=== PATIENT | female | born 1965 | race Caucasian/White ===

== ENCOUNTER → 2017-03-19 | Outpatient (CLI) | payer BC ==
--- NOTE | 2017-03-23 09:02 | MM ---
Reason for exam: screening (asymptomatic). Last mammogram was performed 3 years and 10 months ago. History: Family history of breast cancer in grandmother at age 92. Benign US right core biopsy of the right breast, July 08, 2007. Benign US right core biopsy of the right breast, July 08, 2007. Physical Findings: A clinical breast exam by your physician is recommended on an annual basis and results should be correlated with mammographic findings. MG Screening Mammo w CAD Bilateral CC and MLO view(s) were taken. Prior study comparison: May 09, 2013, bilateral digital screening mammo w/CAD. June 03, 2007, bilateral workup diagnostic mammogram. There are scattered fibroglandular densities. Finding: There are typically benign stable masses in both breasts. No suspicious abnormality. Post biopsy change upper outer quadrant right breast. No significant changes in finding since May 09, 2013 and June 03, 2007. ASSESSMENT: Benign, BI-RAD 2 RECOMMENDATION: Routine screening mammogram of both breasts in 1 year.
== END | disposition home or self-care (01) ==
LOC: RADMAMWWP 15:33
PROVIDERS: ATTEND Family Medicine
DX: Z12.31 Encounter for screening mammogram for malignant neoplasm of breast (principal)

== ENCOUNTER → 2020-07-18 | Outpatient (CLI) | payer BC ==
--- NOTE | 2020-07-18 15:14 | US ---
EXAMINATION TYPE: US transvaginal DATE OF EXAM: 07/18/2020 COMPARISON: NONE CLINICAL HISTORY: 55-year-old female N95.0 Post menopausal bleeding. Post menopausal bleeding x 9 day s, pelvic cramping, 2, para 2, history of tubal ligation. TECHNIQUE: Transvaginal exam only per physician order. Date of LMP: 2 years ago FINDINGS: EXAM MEASUREMENTS: Uterus: 7.6 x 3.9 x 5.6 cm Endometrial Stripe: 1.0 cm Right Ovary: not seen Left Ovary: not seen 1. Uterus: anteverted, myometrium slightly heterogeneous. 7 mm cervical nabothian cyst noted. 2. Endometrium: thickened 3. Right Ovary: not seen due to overlying bowel gas 4. Left Ovary: not seen due to overlying bowel gas 5. Bilateral Adnexa: wnl 6. Posterior cul-de-sac: wnl IMPRESSION: 1. Endometrial stripe thickened at 1.0 cm, abnormal for a postmenopausal female with bleeding. Differ ential considerations include endometrial polyps, hyperplasia, or endometrial carcinoma. Further OB/G YN evaluation recommended. 2. Neither ovary could be visualized.
== END | disposition home or self-care (01) ==
LOC: RADUSWWP 13:42
PROVIDERS: ATTEND Family Medicine
DX: N95.0 Postmenopausal bleeding (principal); N85.8 Other specified noninflammatory disorders of uterus
CPT/HCPCS: 76830

== ENCOUNTER → 2020-08-06 | Outpatient (CLI) | payer BC ==
[2020-08-06 08:06] LABS: Basophils # (A) 0.1 k/uL (0-0.2); Basophils % (A) 1 %; Eosinophils # (A) 0.2 k/uL (0-0.7); Eosinophils % (A) 2 %; HCT 43.7 % (34.0-46.0); HGB 14.9 gm/dL (11.4-16.0); Lymphocytes # (A) 3.2 k/uL (1.0-4.8); Lymphocytes % (A) 32 %; MCH 32.9 pg (25.0-35.0); MCV 96.5 fL (80.0-100.0); Mean Platelet Volume 8.5; Monocytes # (A) 0.4 k/uL (0-1.0); Monocytes % (A) 4 %; Neutrophils % (A) 60 %; Platelet Count 297 k/uL (150-450); RBC 4.53 m/uL (3.80-5.40); RDW 12.8 % (11.5-15.5)
== END | disposition home or self-care (01) ==
LOC: LABPAT 07:24
PROVIDERS: ATTEND Obstetrics & Gynecology
DX: Z01.818 Encounter for other preprocedural examination (principal)
CPT/HCPCS: 36415; 85025; 93005

== ENCOUNTER 2020-08-13 06:25 | Day surgery (SDC) | payer BC ==
[2020-08-07 12:21] VITALS: BMI 29.7
--- NOTE | 2020-08-12 12:12 | P.HPOB ---
History of Present Illness H&P Date: 08/12/20 Chief Complaint: Postmenopausal bleeding, endometrial thickening on ultrasound This is a 55 y.o. female, 2, para 2, who presents for dilatation and curettage with hysteroscopy due to postmenopausal bleeding and endometrial thickening on ultrasound. She complains of bleeding that began on 07/10/2020 and lasted 10 days. She did have cramping and tender breasts. Ultrasound showed uterus measuring 7.6 x 3.9 x 5.6 cm with endometrial thickness of 1 cm. Neither ovary was seen. OB Hx: . History of 2 vaginal deliveries. Arterial Embalmer Hx: No history of STDs. Menopause age 53. Social Hx: . 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 Review of Systems Constitutional: Reports fatigue, Denies chills, Denies fever Eyes: denies blurred vision, denies pain Ears, nose, mouth and throat: Denies headache, Denies sore throat Cardiovascular: Denies chest pain, Denies shortness of breath Respiratory: Denies cough Gastrointestinal: Denies abdominal pain, Denies diarrhea, Denies nausea, Denies vomiting Genitourinary: Reports abnormal vaginal bleeding, Reports pelvic pain Menstruation: Reports postmenopausal Musculoskeletal: Denies myalgias Integumentary: Denies pruritus, Denies rash Neurological: Denies numbness, Denies weakness Psychiatric: Reports irritability Past Medical History Additional Past Medical History / Comment(s): PMB WITH UTERINE THICKENING; Degenerative disc disease; Hx Carrero's Palsy History of Any Multi-Drug Resistant Organisms: None Reported Past Surgical History: Tubal Ligation Additional Past Surgical History / Comment(s): COLONOSCOPY Past Anesthesia/Blood Transfusion Reactions: No Reported Reaction Past Psychological History: Depression Smoking Status: Current every day smoker Past Alcohol Use History: Occasional Past Drug Use History: None Reported - Past Family History Mother Family Medical History: No Reported History Sister(s) Family Medical History: Neurologic Disorder (MS) Medications and Allergies Home Medications Medication Instructions Recorded Confirmed Type FLUoxetine HCL [PROzac] 20 mg PO HS 08/07/20 08/13/20 History Allergies Allergy/AdvReac Type Severity Reaction Status Date / Time shellfish derived [Shellfish] Allergy Swelling Verified 08/13/20 06:59 Exam Osteopathic Statement: *. No significant issues noted on an osteopathic structural exam other than those noted in the History and Physical/Consult. HEENT: within normal limits Heart: regular rate and rhythm Lungs: clear to auscultation bilaterally Abdomen: soft, non-tender Pelvic: uterus mid position, non-tender, no adnexal masses or tenderness. Extremities: neg. Julissa's Assessment and Plan (1) Postmenopausal bleeding Current Visit: No Status: Acute Code(s): N95.0 - POSTMENOPAUSAL BLEEDING SNOMED Code(s): 87862009 (2) Endometrial thickening on ultrasound Current Visit: No Status: Acute Code(s): R93.89 - ABNORMAL FINDINGS ON DX IMAGING OF OTH BODY STRUCTURES SNOMED Code(s): 707548666 Plan: Proceed with dilatation and curettage with hysteroscopy. I have discussed the risks, benefits, and alternative therapies for the above- mentioned procedure and for both sedation/anesthesia as well as necessary blood products administration, if indicated, as they pertain to this patient. The patient has indicated her understanding and acceptance of the risks and procedures discussed.
[~2020-08-13 06:25] MED LIST: DEXAMETHASONE SOD PHOSPHATE 4 MG/ML 1 ML VIAL IV ONE; HYDROmorphone 0.5 MG/0.5 ML SYRINGE IVP PRN; LACTATED RINGERS 1,000 ML IV SCH; ONDANSETRON 4 MG/2 ML VIAL IVP ONE; Pre Op ABX Message 1 EACH MISC MISCELLANE ONE
[2020-08-13 06:53] VITALS: RESP 16
[2020-08-13] MEDS ORDERED: LIDOCAINE 1% (10MG/ML) FOR IV START INTRADERMA ONE (06:58)
[2020-08-13] MEDS ORDERED: MIDAZOLAM 2 MG/2 ML VIAL IVP ONE (07:00)
[2020-08-13] MEDS ORDERED: PROPOFOL 10 MG/ML 20 ML VIAL IV ONE (07:54)
[2020-08-13] MEDS ORDERED: MIDAZOLAM 2 MG/2 ML VIAL ONE (07:54)
[2020-08-13] MEDS ORDERED: LIDOCAINE 1% INJ 10MG/ML (20 ML MDV) ONE (07:54)
[2020-08-13] MEDS ORDERED: fentaNYL (PF) 50 MCG/ML 2 ML AMP ONE (07:54)
--- NOTE | 2020-08-13 08:16 | P.OP ---
Date of Procedure: 08/13/20 Preoperative Diagnosis: Postmenopausal bleeding Endometrial thickening on ultrasound Postoperative Diagnosis: Same Procedure(s) Performed: Dilation and curettage with hysteroscopy Anesthesia: other (Mask general) Surgeon: Mirella Beckham Estimated Blood Loss (ml): 2 Pathology: other (Endometrial curettings) Condition: stable Disposition: same day Indications for Procedure: This is a 55 y.o. female, 2, para 2, who presents for dilatation and curettage with hysteroscopy due to postmenopausal bleeding and endometrial thickening on ultrasound. She complains of bleeding that began on 07/10/2020 and lasted 10 days. She did have cramping and tender breasts. Ultrasound showed uterus measuring 7.6 x 3.9 x 5.6 cm with endometrial thickness of 1 cm. Neither ovary was seen. Operative Findings: Uterus is mid to retroverted, sounded to 7-1/2 cm. Upon hysteroscopy, a small polyp was noted on the posterior uterine wall. Tubal ostia are visualized. Otherwise atrophic pattern was noted. Scant endometrial tissue was no adnexal masses are palpated. Description of Procedure: Patient is taken to the operating room where she is placed in the dorsal lithotomy position. She is prepped and draped in the normal sterile fashion. Her bladder is drained with a catheter. Examination is performed under anesthesia. Uterus is found to be mid to retroverted position with no adnexal masses palpated. A weighted speculum was placed in the patient's vagina and a right angle retractor was used to visualize the anterior lip of the cervix. The cervix was grasped with a single-tooth tenaculum. Of note she does have grade 2 uterine prolapse and approximately grade 2 cystocele. The uterus is sounded to 7-1/2 cm. Next the cervix is gently dilated with Childs dilators until a hysteroscope could be passed. Hysteroscopy is performed using normal saline. The above noted findings are noted and pictures are taken. Next the hysteroscope was withdrawn and the cervix gently dilated further. A polyp forceps was introduced and on small polyp was removed. A medium-size sharp curet was introduced and sharp curettage was performed until a gritty texture was noted. Very scant further tissue was obtained. The specimen was removed from the field. The single-tooth tenaculum is removed. No active bleeding is noted. All instruments are removed from the vagina. All sponge counts are correct. The patient is then taken to recovery room in stable condition.
[2020-08-13 08:28] VITALS: TEMP 96.8
[2020-08-13 09:40] VITALS: BP 110/61; PULSE 71
== END 2020-08-13 09:42 | disposition home or self-care (01) ==
LOC: OR 06:25
PROVIDERS: ATTEND Obstetrics & Gynecology
DX: N85.8 Other specified noninflammatory disorders of uterus (principal); N84.0 Polyp of corpus uteri; N81.2 Incomplete uterovaginal prolapse; N95.0 Postmenopausal bleeding; M51.9 Unspecified thoracic, thoracolumbar and lumbosacral intervertebral disc disorder; F32.9 Major depressive disorder, single episode, unspecified; K08.89 Other specified disorders of teeth and supporting structures; F17.210 Nicotine dependence, cigarettes, uncomplicated; Z86.69 Personal history of other diseases of the nervous system and sense organs; Z98.51 Tubal ligation status; Z98.890 Other specified postprocedural states; Z79.899 Other long term (current) drug therapy; Z91.013 Allergy to seafood; Z82.0 Family history of epilepsy and other diseases of the nervous system
CPT/HCPCS: 58558; 88305; J2250; J1100; J2405; J2001; J3010; J2704; J1170

== ENCOUNTER → 2020-09-06 | Outpatient (CLI) | payer BC ==
--- NOTE | 2020-09-07 14:10 | MM ---
Reason for exam: screening (asymptomatic). Last mammogram was performed 3 years and 6 months ago. History: Family history of breast cancer in grandmother at age 92. Benign US right core biopsy of the right breast, July 08, 2007. Benign US right core biopsy of the right breast, July 08, 2007. Physical Findings: A clinical breast exam by your physician is recommended on an annual basis and results should be correlated with mammographic findings. MG Screening Mammo w CAD Bilateral CC and MLO view(s) were taken. Prior study comparison: March 19, 2017, bilateral MG screening mammo w CAD. May 09, 2013, bilateral digital screening mammo w/CAD. The breast tissue is heterogeneously dense. This may lower the sensitivity of mammography. Previous mammotome biopsy in the right breast. There is chronic nodularity in the right breast. No significant changes when compared with prior studies. ASSESSMENT: Benign, BI-RAD 2 RECOMMENDATION: Routine screening mammogram of both breasts in 1 year.
== END | disposition home or self-care (01) ==
LOC: RADMAMWWP 10:13
PROVIDERS: ATTEND Family Medicine
DX: Z12.31 Encounter for screening mammogram for malignant neoplasm of breast (principal); Z80.3 Family history of malignant neoplasm of breast
CPT/HCPCS: 77067

== ENCOUNTER → 2022-10-20 | Outpatient (CLI) | payer BC ==
--- NOTE | 2022-10-21 07:29 | CTL ---
EXAMINATION TYPE: CT Low Dose Lung DATE OF EXAM ORDERED: 10/20/2022 COMPARISON: None HISTORY: . Low Dose CT Lung Screening CT DLP: 112.[address] CTDI: 2.6 mGy IV CONTRAST USED: None. SCREENING VISIT: First visit COMPARISON: None. TECHNIQUE: Low dose computed tomography scan was performed through the chest at 1 millimeter thick se ctions and reconstructed images in the coronal plane at [address] DIAGNOSTIC QUALITY: Satisfactory FINDINGS: LUNG NODULES: 2 mm pulmonary nodule right upper lobe subpleural location image 92 sequence 4. 5.9 mm pulmonary nodu le left apical region subpleural location posteriorly image 68 sequence 4. LUNGS: COPD: Severity: Mild Fibrosis: Severity:None Lymph nodes: None Other findings: None RIGHT PLEURAL SPACE: Effusion: None Calcification: None Thickening: None Pneumothorax: None LEFT PLEURAL SPACE: Effusion: None Calcification: None Thickening: None Pneumothorax: None HEART: Heart Size: Mildly enlarged Coronary calcification: Mild Pericardial effusion: None Aberrant right subclavian artery noted. OTHER FINDINGS: Upper abdomen: No significant abnormality Bony thorax: Degenerative changes Supraclavicular region: No significant abnormalityOther: No significant abnormalityI IMPRESSION: Benign appearing nodules FOLLOW UP CT CHEST RECOMMENDATION: Follow-up screening in one year. Smoking cessation recommended. CT LUNG RAD: LUNG RAD CATEGORY 2 benign appearance and/or behavior.
== END | disposition home or self-care (01) ==
LOC: RADCTMAIN 16:56
PROVIDERS: ATTEND Family Medicine
DX: Z12.2 Encounter for screening for malignant neoplasm of respiratory organs (principal); R91.8 Other nonspecific abnormal finding of lung field; Z87.891 Personal history of nicotine dependence
CPT/HCPCS: 71271

== ENCOUNTER → 2023-01-14 | Outpatient (CLI) | payer BC ==
--- NOTE | 2023-01-15 20:59 | MM ---
Reason for Exam: Screening (asymptomatic). Last mammogram was performed 2 year(s) and 5 month(s) ago. Patient History: Menarche at age 15. First Full-Term at age 24. Postmenopausal. 07/08/2007, Benign Core Biopsy on the right side. 07/08/2007, Benign Core Biopsy on the right side. Maternal grandmother had breast cancer, age 92. Risk Values: Kriss 5 year model risk: 1.6%. NCI Lifetime model risk: 9.5%. Prior Study Comparison: 05/09/2013 Bilateral Screening Mammogram, [facility]. 03/19/2017 Bilateral Screening Mammogram, [facility]. 09/06/2020 Bilateral Screening Mammogram, [facility]. Tissue Density: There are scattered fibroglandular densities. Findings: Analyzed By CAD. Pattern appears stable. Chronic nodularity is present bilaterally. No significant interval changes. No suspicious groups of microcalcifications, spiculated or lobular masses, architectural distortion or other secondary signs of malignancy are mammographically apparent. Overall Assessment: Benign, BI-RAD 2 Management: Screening Mammogram of both breasts in 1 year. A negative mammogram report should not preclude additional follow up of suspicious palpable abnormalities. Patient should continue monthly self breast exam. A clinical breast exam by your physician is recommended on an annual basis and results should be correlated with mammographic findings. Electronically signed and approved by: Carlo Amato D.O. Radiologis
== END | disposition home or self-care (01) ==
LOC: RADMAMWWP 16:45
PROVIDERS: ATTEND Family Medicine
DX: Z12.31 Encounter for screening mammogram for malignant neoplasm of breast (principal); Z78.0 Asymptomatic menopausal state; Z80.3 Family history of malignant neoplasm of breast
CPT/HCPCS: 77063; 77067

== ENCOUNTER → 2024-11-25 | Outpatient (CLI) | payer BC ==
--- NOTE | 2024-11-26 07:42 | CTL ---
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 TECHNIQUE: Low dose computed tomography scan was performed through the chest at 1 mm thick sections a nd reconstructed images in multiple planes at 1 mm and [address] DLP: 148.[address] CTDI: 4.0 mGy Automated exposure control for dose reduction was used. CT DIAGNOSTIC QUALITY: Satisfactory FINDINGS: Nodules: Stable left apical 5.7 mm pulmonary nodule (series 4, image 32). Stable right upper lobe lateral subpleural 3.7 mm pulmonary nodule (series 4, image 60). Peripheral right upper lobe subpleural 3.2 mm pulmonary nodule (series 4, image 75). LUNGS: COPD: Severity: None Fibrosis: Severity: None Lymph nodes: None Other findings: Azygous fissure. RIGHT PLEURAL SPACE: Effusion: None Calcification: None Thickening: None Pneumothorax: None LEFT PLEURAL SPACE: Effusion: None Calcification: None Thickening: None Pneumothorax: None HEART: Heart Size: Normal Coronary Calcification: None Pericardial Effusion: None OTHER FINDINGS: Upper abdomen: None Bony thorax: None Supraclavicular region: None Other: Aberrant right subclavian artery with retroesophageal course. IMPRESSION: Couple of small benign appearing pulmonary nodules measuring less than [address] LUNG RAD AND CT CHEST RECOMMENDATION: Lung-Rad 2 Benign Appearance or Behavior: Continue annual sc reening with LDCT in 12 months. S Modifier (other clinically significant findings): None [facility], , 11/26/2024 7:40 AM
== END | disposition home or self-care (01) ==
LOC: RADCTMAIN 17:01
PROVIDERS: ATTEND Family Medicine
DX: Z12.2 Encounter for screening for malignant neoplasm of respiratory organs (principal); F17.210 Nicotine dependence, cigarettes, uncomplicated; R91.8 Other nonspecific abnormal finding of lung field
CPT/HCPCS: 71271